=== PATIENT | male | born 1965 | race Caucasian/White ===

== ENCOUNTER 2021-11-26 05:28 | Day surgery (SDC) | payer OTHER ==
[~2021-11-26] VITALS: Ht 168 cm; Wt 98.0 kg
[~2021-11-26 05:28] MED LIST: ALLOPURINOL 10100 MG PO; ASPIRIN EC81 MG PO; BRILINTA90 MG PO; CERTAGEN1 EACH PO; COQ1050 MG PO; CRESTOR20 MG PO; NAPROXEN500 MG PO; NITROQUIK SL0.4 MG SL; PERCOCET 5-3251 EACH PO; PREDNISONE 20MG20 MG PO; PRILOSEC20 MG PO; PRINIVIL10 MG PO; TOPROL XL 25MG25 MG PO; ZETIA10 MG PO
[2021-11-26] MEDS ORDERED: FEOSOL325 MG PO (11:30)
--- NOTE | 2021-11-26 13:35 | NUR ---
PT HAD A LTSR THIS DATE. HE WILL D/C HOME WITH SPOUSE. NO NEEDS.
== END 2021-11-26 16:30 | disposition home or self-care (01) ==
LOC: FAS 05:28
DX: M19.012 Primary osteoarthritis, left shoulder (principal); E78.5 Hyperlipidemia, unspecified; I25.10 Atherosclerotic heart disease of native coronary artery without angina pectoris; G47.30 Sleep apnea, unspecified; Z79.82 Long term (current) use of aspirin; Z88.5 Allergy status to narcotic agent; Z88.8 Allergy status to other drugs, medicaments and biological substances; Z95.5 Presence of coronary angioplasty implant and graft; Z87.891 Personal history of nicotine dependence; E78.2 Mixed hyperlipidemia; I10 Essential (primary) hypertension
CPT/HCPCS: 73020; 86850; 86900; 86901; 94010; 97162; 97166; 97530-GP; 97535; C1713; C1776; J0171; J0697; J0735; J1885; J2250; J2370; J2405; J2704; J2710; J2795; J3010; J7120